=== PATIENT | male | born 1960 | race Caucasian/White ===

== ENCOUNTER → 2017-03-25 | Outpatient (REF) | payer BC ==
[~2017-03-25] MED LIST: ASPI-586 PO; ATOR10TA56; CETI10TA20 PO; FLUT16SP NS; OMEP40CA3 PO; TRM50T PO
[2017-03-25 10:59] LABS: BASOPHILS % (AUTO) 1 % (0-2); EOSINOPHILS # (AUTO) 0.1 10^3uL; EOSINOPHILS % (AUTO) 1 % (0-4); LYMPHOCYTES # (AUTO) 1.2 X10^3; MEAN CORPUSCULAR VOLUME 81 FL (80-100); MEAN PLATELET VOLUME 9.9 FL (6.0-9.5); MONOCYTES # (AUTO) 0.5 X10^3; MONOCYTES % (AUTO) 9 % (3-11); NEUTROPHILS # (AUTO) 3.6 X10^3; NEUTROPHILS % (AUTO) 67 % (51-67); PLATELET COUNT 206 10^3uL (150-450)
[2017-03-25 11:02] LABS: MEAN CORPUSCULAR HEMOGLOBIN 26.6 PG (26.0-34.0)
[2017-03-25 11:21] LABS: ALBUMIN 4.6 g/dL (3.4-5.0); ALKALINE PHOSPHATASE 72 U/L (38-126); ANION GAP 16.4 MEQ/L (3-15); BUN/CREATININE RATIO 20 (10-20); TOTAL PROTEIN 7.5 g/dL (6.4-8.5)
[2017-03-25 11:37] LABS: ERYTHROCYTE SEDIMENTATION RT* 4 mm/hr (0-19)
== END ==
LOC: LAB 10:45
PROVIDERS: ATTEND Family Medicine
DX: M25.542 Pain in joints of left hand (principal)
CPT/HCPCS: 80053; 85025; 85652; 86038; 86140; 86431